=== PATIENT | female | born 1995 | race Caucasian/White ===

== ENCOUNTER 2018-04-11 15:15 | Inpatient (IN) | payer OTHER ==
[~2018-04-11] VITALS: Ht 152.4 cm; Wt 77.6 kg
[2018-05-17] MEDS ORDERED: PRENATAL TABLE1 EAC1 PO (06:28)
[2018-05-20] MEDS ORDERED: IBUPROFEN400 MG PO (08:35)
[2018-05-20] MEDS ORDERED: PREPLUS CA-FE1 EACH PO (08:35)
== END 2018-05-20 12:03 | DRG 807 ==
LOC: SURH 05-16 15:15 → LDR 05-17 05:57 → OB/GYN 05-17 05:57
PROC: 10E0XZZ Delivery of Products of Conception, External Approach (ICD-10-PCS; principal; 2018-05-18)
PROC: 0KQM0ZZ Repair Perineum Muscle, Open Approach (ICD-10-PCS; 2018-05-18)
PROC: 10907ZC Drainage of Amniotic Fluid, Therapeutic from Products of Conception, Via Natural or Artificial Opening (ICD-10-PCS; 2018-05-18)
PROC: 3E0P7VZ Introduction of Hormone into Female Reproductive, Via Natural or Artificial Opening (ICD-10-PCS; 2018-05-18)
PROC: 4A1HXCZ Monitoring of Products of Conception, Cardiac Rate, External Approach (ICD-10-PCS; 2018-05-18)
DX: O70.1 Second degree perineal laceration during delivery (principal); Z37.0 Single live birth; Z3A.40 40 weeks gestation of pregnancy